=== PATIENT | male | born 1980 | race Caucasian/White ===

== ENCOUNTER 2018-08-09 15:10 | Observation (INO) ==
--- NOTE | 2018-08-09 18:28 | Internal Med History&Physical ---
Date of Encounter: 08/09/18 Time of Encounter: 18:15 Internal Medicine - H&P: HPI Chief complaint: right flank pain Admitted From: Home Plans for Post Hospital Care: Home History of present illness: Mr. Pascual is a 37 year old male who has history of PTSD chronic back pain, knee pain presented to [facility] ED for 3 days of right flank pain. Patient states he has been in his usual healthy until 3 days ago he developed right flank pain, radiated down to the right groin area, 7 out of 10, sharp, constant, associated mild a fever or chills. He denies any blood in the urine. Denies diarrhea or constipation. He has chronic lower back pain. In the emergency room he was found to UTI, CT stone protocol shows 7.5 mm obstructive stone and the right-sided hydronephrosis. WBC 14.4. He received a dose of Rocephin. P atient is going to be admitted for possible pyelonephritis, obstructive stone and hydronephrosis. I called Dr. Lynch he will schedule surgery tomorrow. Internal Medicine - H&P: Meds Allergy/AdvReac Type Severity Reaction Status Date / Time No Known Allergies Allergy Verified 08/09/18 18:22 All Systems PM: A 10-system review of systems was performed and is negative for pertinent findings except as documented above in the HPI. - Constitutional General appearance: Present: A&O X 3, pleasant Exam: CONSTITUTIONAL: Patient appears as an age appropriate male well developed, in no acute distress. EYES Clear sclerae, bilateral pupils are equal, reactive to light and accommodation. Extraocular movements are intact RESPIRATORY: No accessory muscle use, bilateral clear to auscultation, no wheezing, no crackles/rales. CARDIOVASCULAR: Regular heart rate, normal S1 and S2, no murmurs GASTROINTESTINAL: bowel sounds present, soft, tenderness to right groin. No hepatosplenomegaly. No bilateral CVA tenderness MUSCULOSKELETAL: Joints in normal range of motion, no clubbing, no edema, no cyanosis. Bilateral peripheral pulses 2+ LYMPHATIC no lymphadenopathy in neck, groin and axilla bilaterally, no thyromegaly. NEUROLOGIC: CN II to XII are grossly intact, no focal neurological deficit. Deep tendon reflexes 2+ bilaterally. Normal light touch sensation to upper and lower extremity PSYCHIATRIC: Oriented x3, with good insight, mood is euthymic. No hallucinations or delusions. SKIN: Skin warm and dry, no rashes, no open wound. - Assessment and plan (1) Ureteral calculus, right Current Visit: Yes Status: Acute Assessment and plan: IVF, conuslt Dr Lynch NPO after midnight (2) Hydronephrosis Current Visit: Yes Status: Acute Assessment and plan: IVF, possible OR tomorrow, urology Dr lynch is called Qualifiers: Hydronephrosis type: with renal calculous obstruction Qualified Code(s): N13.2 - Hydronephrosis with renal and ureteral calculous obstruction (3) UTI (urinary tract infection) Current Visit: Yes Status: Acute Assessment and plan: pending UC continue ceftriaxone Qualifiers: Urinary tract infection type: acute pyelonephritis Qualified Code(s): N10 - Acute pyelonephritis (4) Back pain Current Visit: Yes Status: Chronic Assessment and plan: conitnue home meds, baclofen Qualifiers: Back pain location: low back pain Chronicity: chronic Back pain laterality: unspecified Sciatica presence: without sciatica Qualified Code(s): M54.5 - Low back pain; G89.29 - Other chronic pain (5) PTSD (post-traumatic stress disorder) Current Visit: Yes Status: Chronic Assessment and plan: continue home meds, sertraline 200 mg daily (6) Tobacco dependence Current Visit: Yes Status: Chronic Assessment and plan: nicotine patch - Time Spent With Patient Total time spent is greater than 50% in coordination of care (as documented) at patient's floor/unit and/or counseling patient: Greater than 35 minutes
[2018-08-09] MEDS ORDERED: Naloxone 0.4 MG/ML INJ IVP PRN (18:52)
[2018-08-09] MEDS ORDERED: Ondansetron 4 MG/2 ML VIAL IVP PRN (18:52)
[2018-08-09] MEDS ORDERED: Acetaminophen 325 MG TABLET PO PRN (18:52)
[2018-08-09] MEDS ORDERED: cefTRIAXone 1,000 MG in Water for inj. (sterile) 20 ML 10 ML IVP SCH (19:00)
[2018-08-09] MEDS: Ringers Solution, Lactated 1,000 ML IVC SCH (19:25)
[2018-08-09] MEDS: traMADol 50 MG TABLET PO PRN (19:26)
[2018-08-09] MEDS: Nicotine 21 MG PATCH.TD24 TD SCH (19:31)
[2018-08-09] MEDS: Baclofen 10 MG TABLET PO PRN (19:42)
[2018-08-09 23:48] LABS: Bilirubin,Urine Small (Negative); Blood,Urine Negative (Negative); Clarity,Urine Cloudy (Clear); Color,Urine Dark Yellow (Yellow); Glucose,Urine (UA) Normal (Normal); Hyaline Casts,Urine None Seen per lpf (None-Few); Ketones,Urine Trace mg/dL (Negative); Leukocyte Esterase,Urine Moderate (Negative); Nitrite,Urine Negative (Negative); Protein,Urine 100 mg/dL (Neg-Trace); RBC,Urine 0-3 per hpf (0-3); Specific Gravity,Urine 1.025 (1.010-1.025); Squamous Epithelial Cell,Urine None Seen per lpf (None-Few); WBC,Urine TNTC per hpf (0-3)
[2018-08-09 23:57] LABS: Bacteria,Urine Many per hpf (None-Few)
[2018-08-10 00:33] LABS: Basophils # 0.1 K/mcL (0.0-0.2); Basophils % 0.7 %; Eosinophils # 0.3 K/mcL (0.0-0.6); Eosinophils % 2.1 %; Hematocrit 37.7 % (37.5-50.1); Hemoglobin 12.6 g/dL (12.9-16.9); Immature Granulocytes % 0.7 % (0-4); Lymphocytes # 1.8 K/mcL (0.6-4.6); Lymphocytes % 13.1 %; Mean Corpuscular HGB Conc 33.4 g/dL (31.6-35.5); Mean Corpuscular Hemoglobin 27.9 pg (28.0-33.3); Mean Corpuscular Volume 83.6 fL (83.0-100.0); Mean Platelet Volume 10.7 fL (9.4-12.4); Monocytes # 1.7 K/mcL (0.0-1.3); Platelet Count 263 K/mcL (140-400); Red Blood Count 4.51 M/mcL (4.19-5.50); Red Cell Distribution Width 14.5 % (11.5-14.5); Segmented Neutrophils % 71.4 %
[2018-08-10 00:50] LABS: Alanine Aminotransferase 13 Units/L (7-52); Albumin 3.3 g/dL (3.5-5.7); Albumin/Globulin Ratio 0.9 (1.1-2.2); Alkaline Phosphatase 67 Units/L (34-104); Aspartate Amino Transferase 10 Units/L (13-39); BUN/Creatinine Ratio 13 (6-26); Bilirubin,Total 0.4 mg/dL (0.3-1.0); Blood Urea Nitrogen 15 mg/dL (6-20); Calcium 8.4 mg/dL (8.6-10.3); Carbon Dioxide 22 mEq/L (23-29); Chloride 105 mEq/L (98-107); Globulin 3.5 g/dL (2.4-3.5); Glucose 90 mg/dL (70-105); Osmolality,Calculated 280 (280-300); Sodium 135 mEq/L (136-145); Total Protein 6.8 g/dL (6.4-8.9); eGFR For Non-African Americans > 60 (> 60)
[2018-08-10] MEDS ORDERED: *HR* HYDROcodone/Acet 5/325 mg TABLET PO ONE (01:08)
[2018-08-10] MEDS: Ringers Solution, Lactated 1,000 ML IVC SCH (05:11)
[2018-08-10] MEDS: traMADol 50 MG TABLET PO PRN (05:12)
[2018-08-10] MEDS: Nicotine 21 MG PATCH.TD24 TD SCH (07:28)
[2018-08-10] MEDS: Baclofen 10 MG TABLET PO PRN (07:29)
[2018-08-10] MEDS ORDERED: Albuterol 2.5 MG/3 ML NEBULIZER IH ONE (09:35)
--- NOTE | 2018-08-10 09:38 | Anesthesia Evaluation PreOp ---
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: Denies Any Significant HX Other Medical History: Other (PTSD) Anesthesia History: No Prior Anesthetic Complications Alcohol Use: occasionally Drug use: none Medications and Allergies Allergy/AdvReac Type Severity Reaction Status Date / Time No Known Allergies Allergy Verified 08/09/18 18:22 - Meds/Allergy Pre-op Review Medications Reviewed: Yes Allergies Reviewed: Yes Beta Blockers on Current Med List: No Anesthesia Results - Labs 08/10/18 00:17 08/10/18 00:17 Anesthesia Exam Vital Signs/O2 Sat/Glucose, Most Current Temp Pulse Resp BP Pulse Ox 08/10/18 08:30 98 08/10/18 07:06 98.2 F 88 15 116/74 98 Height: 6'0 Weight: 178 lbs NPO (# of Hours): MN Pain Scale: 0 - HEENT Pupil (Motor): Pupils equal, EOMI Mallampati: II Oral Opening: Greater than 3 - DUMPER BAILER OPERATOR LOC: Oriented DUMPER BAILER OPERATOR Motor: Normal RUE, Normal LUE, Normal RLE, Normal LLE, Normal Face DUMPER BAILER OPERATOR Sensory: Normal: RUE, LUE, RLE, LLE, Face - Cardiac Rhythm: Regular Murmur: None JVD: No Carotid Bruit: No - Pulmonary Breath Sounds: bilateral Clear Respiratory Effort: Symmetrical Anesthesia Assess/Plan ASA Score: 2 Level of consciousness: Cooperative, Oriented Anesthetic Plan: General Autologous Blood: No Monitoring Plan: Standard Monitors Recovery Plan: PACU (Discussed GA, agres to proceed)
--- NOTE | 2018-08-10 10:05 | Urology - Consult Note ---
Date of Encounter: 08/10/18 Time of Encounter: 10:03 - Assessment and Plan (1) Hydronephrosis Current Visit: Yes Status: Acute Assessment and plan: Hydronephrosis due to obstructing right mid to distal ureteral calculus in setting of UTI fevers more urgent urinary diversion. Plan: Add on for urgent urinary diversion by stent today. Qualifiers: Hydronephrosis type: with ureteral calculous obstruction Qualified Code(s): N13.2 - Hydronephrosis with renal and ureteral calculous obstruction (2) UTI (urinary tract infection) Current Visit: Yes Status: Acute Assessment and plan: Imaging exam and urine consistent with UTI with possible upper tract involvement and right pyelonephritis. Discussed findings and options for management. Urgent urinary diversion is indicated. Plan: Urgent urinary diversion by stenting today. Qualifiers: Urinary tract infection type: acute pyelonephritis Qualified Code(s): N10 - Acute pyelonephritis (3) Ureteral calculus, right Current Visit: Yes Status: Acute Assessment and plan: 7.5 mm right mid to distal ureteral calculus with hydronephrosis, pyelonephritis, active UTI and fevers. Discussed findings and options for management with patient. Plan: Add on for urgent urinary diversion by stent placement in office today. Staged surgical address of stone as outpatient once infection has been eradicated. My office for patient to schedule follow-up appointment. Urology CN:WIL Consult date: 08/10/18 Requesting physician: Memo Vasquez History of present illness: Mr. Pascual is a 37 year old male who has history of PTSD chronic back pain, knee pain presented to [facility] ED for 3 days of right flank pain. Patient states he has been in his usual healthy until 3 days ago he developed right flank pain, radiated down to the right groin area, 7 out of 10, sharp, constant, associated mild a fever or chills. He denies any blood in the urine. Denies diarrhea or constipation. He has chronic lower back pain. In the emergency room he was found to UTI, CT stone protocol shows 7.5 mm obstructive stone and the right-sided hydronephrosis. WBC 14.4. He received a dose of Rocephin. Patient is going to be admitted for possible pyelonephritis, obstructive stone and hydronephrosis. I am called for surgical intervention Past Med Surg Social Fam HX - Past Medical History Psychiatric history: anxiety, depression, PTSD - Social History Smoking Status: Current every day smoker Packs per day: 1 Smokeless Tobacco Status: Yes Alcohol use: occasionally Drug use: none Medications and Allergies Allergy/AdvReac Type Severity Reaction Status Date / Time No Known Allergies Allergy Verified 08/09/18 18:22 Review of Systems - Constitutional fever(s) - EENT Nose, mouth and throat: no dizziness, no headache(s) - Cardiovascular no chest pain, no diaphoresis - Respiratory no cough, no dyspnea - Gastrointestinal abdominal pain - Genitourinary flank pain - Musculoskeletal back pain - Integumentary no erythema, no rash - Neurological no confusion, no sensory deficit - Psychiatric no anxiety, no confusion - Hematologic/Lymphatic no easy bleeding, no easy bruising Exam Initial Vital Signs Temp Pulse Resp BP Pulse Ox 98.0 F 61 15 126/87 95 08/09/18 18:19 08/09/18 18:19 08/09/18 18:19 08/09/18 18:19 08/09/18 18:19 - General physical appearance Present: well developed, well nourished, moderate distress - Eyes Present: PERRL, normal ocular movement - ENT Present: normal nares, normal mucosa - Neck Present: trachea midline - Respiratory Present: normal respiratory effort - Abdomen Abdomen: Present: soft. Absent: distended - Integumentary Present: no rash, no growths - Neurologic Present: normal coordination - Musculoskeletal Present: normal gait Urology Results - Labs 08/10/18 00:17 08/10/18 00:17 Abnormal lab results WBC 14.0 K/mcL (4.3-11.1) H 08/10/18 00:17 Hgb 12.6 g/dL (12.9-16.9) L 08/10/18 00:17 MCH 27.9 pg (28.0-33.3) L 08/10/18 00:17 Neutrophils # 10.0 K/mcL (1.6-8.9) H 08/10/18 00:17 Monocytes # 1.7 K/mcL (0.0-1.3) H 08/10/18 00:17 Sodium 135 mEq/L (136-145) L 08/10/18 00:17 Carbon Dioxide 22 mEq/L (23-29) L 08/10/18 00:17 Calcium 8.4 mg/dL (8.6-10.3) L 08/10/18 00:17 AST 10 Units/L (13-39) L 08/10/18 00:17 Albumin 3.3 g/dL (3.5-5.7) L 08/10/18 00:17 Albumin/Globulin Ratio 0.9 (1.1-2.2) L 08/10/18 00:17 Urine Clarity Cloudy (Clear) A 08/09/18 23:15 Urine Protein 100 mg/dL (Neg-Trace) H 08/09/18 23:15 Urine Ketones Trace mg/dL (Negative) H 08/09/18 23:15 Urine Bilirubin Small (Negative) H 08/09/18 23:15 Urine Urobilinogen 2.0 mg/dL (Normal) H 08/09/18 23:15 Ur Leukocyte Esterase Moderate (Negative) H 08/09/18 23:15 Urine Microscopic WBC TNTC per hpf (0-3) H 08/09/18 23:15 Urine Bacteria Many per hpf (None-Few) H 08/09/18 23:15 Diabetes panel 08/10/18 Range/Units 00:17 Sodium 135 L (136-145) mEq/L Potassium 4.0 (3.5-5.1) mEq/L Chloride 105 (98-107) mEq/L Carbon Dioxide 22 L (23-29) mEq/L BUN 15 (6-20) mg/dL Creatinine 1.15 (0.70-1.30) mg/dL Glucose 90 (70-105) mg/dL Calcium 8.4 L (8.6-10.3) mg/dL AST 10 L (13-39) Units/L ALT 13 (7-52) Units/L Alkaline Phosphatase 67 (34-104) Units/L Albumin 3.3 L (3.5-5.7) g/dL Calcium panel 08/10/18 Range/Units 00:17 Calcium 8.4 L (8.6-10.3) mg/dL Albumin 3.3 L (3.5-5.7) g/dL Pituitary panel 08/10/18 Range/Units 00:17 Sodium 135 L (136-145) mEq/L Potassium 4.0 (3.5-5.1) mEq/L Chloride 105 (98-107) mEq/L Carbon Dioxide 22 L (23-29) mEq/L BUN 15 (6-20) mg/dL Creatinine 1.15 (0.70-1.30) mg/dL Glucose 90 (70-105) mg/dL Calcium 8.4 L (8.6-10.3) mg/dL Adrenal panel 08/10/18 Range/Units 00:17 Sodium 135 L (136-145) mEq/L Potassium 4.0 (3.5-5.1) mEq/L Chloride 105 (98-107) mEq/L Carbon Dioxide 22 L (23-29) mEq/L BUN 15 (6-20) mg/dL Creatinine 1.15 (0.70-1.30) mg/dL Glucose 90 (70-105) mg/dL Calcium 8.4 L (8.6-10.3) mg/dL Total Bilirubin 0.4 (0.3-1.0) mg/dL AST 10 L (13-39) Units/L ALT 13 (7-52) Units/L Alkaline Phosphatase 67 (34-104) Units/L Albumin 3.3 L (3.5-5.7) g/dL All other labs normal. - Imaging CT scan - abdomen: image reviewed CT scan - pelvis: image reviewed (Images of CT abdomen and pelvis reviewed and interpreted independently) Consult Discharge Plan - Plan Referrals: NONE,PCP [Primary Care Provider] -
[2018-08-10] MEDS ORDERED: Famotidine 20 MG/2 ML VIAL ONE (10:17)
[2018-08-10] MEDS ORDERED: Acetaminophen IV 1,000 MG/100 ML INFUS..BTL ONE (10:17)
[2018-08-10] MEDS ORDERED: Isovue-300 50 ML VIAL ONE (10:31)
[2018-08-10] MEDS ORDERED: Gentamicin 80 MG/2 ML VIAL ONE (10:49)
[2018-08-10] MEDS ORDERED: *HR* FentaNYL (PF) 100 MCG/2 ML VIAL ONE ×2 (11:01→11:20)
[2018-08-10] MEDS ORDERED: *HR* OxyCODONE Immed Rel 5 MG TABLET PO PRN (11:08)
[2018-08-10] MEDS ORDERED: *HR* Morphine 2 MG/ML SYRINGE IVP PRN (11:08)
--- NOTE | 2018-08-10 11:12 | Operative Note ---
Date of procedure: 08/10/18 Pre-op diagnosis: Right ureteral calculus, UTI Post-op diagnosis: same Procedure: Cystoscopy, right retrograde ureteral pyelography with intraoperative interpretation of radiographic images in real time by surgeon to facilitate procedure, right double-J stent placement Implants: 6 x 28 right double-J stent Complications: None Anesthesia: GETA Surgeon: Konrad Soto Was there an assistant boiler operator present: No Estimated blood loss (cc): 0 Specimen: none Condition: stable Disposition: PACU Procedure in Detail: The patient brought to the operating theater placed on the table in supine position. Patient identified by name and administered a general anesthetic. The patient placed in dorsal lithotomy prepped and draped in the normal sterile fashion. A cystoscope was inserted urethral meatus and advanced toward the bladder under direct visualization. There were no mucosal abnormalities of urethra or bladder. An open-ended catheter was placed the tip of the right ureteral orifice and with gentle injection of contrast a right retrograde ureteropyelogram was performed. Intraoperative interpretation of radiographic images in real time by surgeon to facilitate procedure revealed normal distal ureter to approximately level of the iliacs were a large filling defect was noted. Above this filling defect significant hydroureteronephrosis was identified consistent with high-grade ureteral obstruction. No other abnormalities were appreciated. Based upon these findings urinary diversion was indicated. Under fluoroscopic guidance a Glidewire was advanced the right ureteral orifice and above the stone into the right renal pelvis. Over the Glidewire a 6 x 28 double-J stent was advanced. Once the stent was felt in good position the Glidewire was removed. Proximal and distal curls of the stent were seen in satisfactory position. All instruments were removed from the patient's bladder. This ended the operative procedure
[2018-08-10] MEDS ORDERED: Lidocaine -MPF 2% 2 ML VIAL ONE (11:20)
[2018-08-10] MEDS ORDERED: Dexamethasone 4 MG/ML VIAL ONE (11:20)
[2018-08-10] MEDS ORDERED: Ondansetron 4 MG/2 ML VIAL ONE (11:20)
[2018-08-10] MEDS ORDERED: *HR* Propofol 200 MG/20 ML VIAL IVP ONE (11:20)
[2018-08-10] MEDS ORDERED: *HR* Midazolam HCl 2 MG/2 ML VIAL ONE (11:20)
--- NOTE | 2018-08-10 11:42 | Anesthesia Evaluation Post Op ---
Date of Encounter: 08/10/18 Time of Encounter: 11:40 - Vital Signs Vital Signs: Vital Signs/O2 Sat/Glucose, Most Current Temp Pulse Resp BP Pulse Ox 08/10/18 11:35 110 15 110/74 96 08/10/18 11:25 95 16 105/72 95 08/10/18 11:15 99.9 F H 100 22 93/60 95 08/10/18 10:23 16 95 08/10/18 08:30 98 - Lungs Lungs: Clear Ascult./Percussion - Airway Airway: Non-obstructed - Cardiovascular Regular Rate - Mental Status Mental Status: Alert & Oriented, Answers Appropriately - Pain Pain Scale: 0 - Nausea Vomiting Nausea Vomiting: Not Present - Hydration Hydration: Ice chips - Discharge PostOp Status: Transfer Patient to floor
[2018-08-10] MEDS ORDERED: traMADol 50 MG TABLET PO PRN (11:58)
[2018-08-10] MEDS ORDERED: Naloxone 0.4 MG/ML INJ IVP PRN (11:58)
[2018-08-10] MEDS ORDERED: Baclofen 10 MG TABLET PO PRN (11:58)
[2018-08-10] MEDS ORDERED: Acetaminophen 325 MG TABLET PO PRN (11:58)
[2018-08-10] MEDS ORDERED: Ondansetron 4 MG/2 ML VIAL IVP PRN (11:58)
[2018-08-10] MEDS ORDERED: Ringers Solution, Lactated 1,000 ML IVC SCH (11:58)
--- NOTE | 2018-08-10 14:27 | Discharge Summary ---
<Fabián Stratton - Last Filed: 08/10/18 15:26> Date of Encounter: 08/10/18 - Discharge Diagnosis (1) Ureteral calculus, right Status: Acute (2) Hydronephrosis Priority: Secondary Status: Acute Qualifiers: Hydronephrosis type: with ureteral calculous obstruction Qualified Code(s): N13.2 - Hydronephrosis with renal and ureteral calculous obstruction (3) UTI (urinary tract infection) Priority: Secondary Status: Acute Qualifiers: Urinary tract infection type: acute pyelonephritis Qualified Code(s): N10 - Acute pyelonephritis (4) Back pain Status: Chronic Qualifiers: Back pain location: low back pain Chronicity: chronic Back pain laterality: unspecified Sciatica presence: without sciatica Qualified Code(s): M54.5 - Low back pain; G89.29 - Other chronic pain (5) PTSD (post-traumatic stress disorder) Status: Chronic (6) Tobacco dependence Status: Chronic Hospital course: Mr. Pascual is a 37 year old male - Time Spent with Patient Total time spent providing and/or coordinating discharge services: - Discharge Medications Prescriptions: Sulfamethoxazole/Trimeth DS [Bactrim DS] 1 each PO BID 5 Days #10 tablet Tamsulosin [Flomax] 0.4 mg PO DAILY 14 Days #14 capsule Home Medications: Acetaminophen [Tylenol] 650 mg PO QID PRN 08/10/18 [History] Baclofen 5 mg PO QID 08/10/18 [History] Cholecalciferol (D-3) [Vitamin D] 2,000 units PO DAILY 08/10/18 [History] Gabapentin [Neurontin] 600 mg PO QID 08/10/18 [History] HydrOXYzine Pamoate [Vistaril] 50 mg PO QID 08/10/18 [History] Ibuprofen [Ibu] 800 mg PO QID PRN 08/10/18 [History] Sertraline [Zoloft] 200 mg PO DAILY 08/10/18 [History] Sulfamethoxazole/Trimeth DS [Bactrim DS] 1 each PO BID 5 Days #10 tablet 08/10/18 [Rx] Tamsulosin [Flomax] 0.4 mg PO DAILY 14 Days #14 capsule 08/10/18 [Rx] traZODone [TraZODone] 150 mg PO HS 08/10/18 [History] Allergies/Adverse Reactions: Allergy/AdvReac Type Severity Reaction Status Date / Time No Known Allergies Allergy Verified 08/09/18 18:22 Date of admission: 08/09/18 17:54 Primary care physician: PCP NONE Consults: 08/09/18 18:54 Consult to Physician [CONS] Routine Consulting Provider: Konrad Soto Reason for Consult: obstructing stone Time Notified: 18:56 Call Completed: Yes - Constitutional Vitals: Temp Pulse Resp BP Pulse Ox 97.2 F L 70 10 100/62 98 08/10/18 14:45 08/10/18 14:45 08/10/18 14:45 08/10/18 14:45 08/10/18 14:45 - Patient Status Disposition: Home, Self-Care Condition: Fair - Discharge Instructions Follow Up With: Konrad Soto [Partnered Physician] - (Office will call patient at home with date and time of appointment. Thank you) - Attending Attestation I examined this patient and my medical decision-making was reviewed with the Resident Physician on 08/10/18. I agree with the documented findings, disposition and treatment plan as described except to the extent set forth below. Mr Pascual has been in observation due to renal obstruction from stone. He is now s/p stent placement and is feeling OK. He is afebrile and ready for discharge home Exam alert Comfortable Mucus membranes dry Heart reg and not tachy No wheeze abd soft and nontender No edema Plan D/C home today. <Rusty Madera - Last Filed: 08/10/18 16:47> - NOTES TO OUTPATIENT PROVIDER Notes to Outpatient Provider: Mr. Pascual was admitted on 08/09/18 for right ureteral calculus with hydronephrosis as demonstrated on CT. He underwent right double-J stent placement with Dr. Soto on 08/10. Pain had improved at time of discharged. Prescriptions were sent for a 5 day course of Bactrim and a short supply of Flomax per urology. Recommend he follow up with his PCP 3-[address] Soto' office will call him for follow up for outpatient staged stone removal. Date of Encounter: 08/10/18 Time of Encounter: 14:27 - Discharge Diagnosis (1) Ureteral calculus, right Priority: Primary Status: Acute (2) Hydronephrosis Priority: Secondary Status: Acute Qualifiers: Hydronephrosis type: with ureteral calculous obstruction Qualified Code(s): N13.2 - Hydronephrosis with renal and ureteral calculous obstruction (3) UTI (urinary tract infection) Priority: Secondary Status: Acute Qualifiers: Urinary tract infection type: acute pyelonephritis Qualified Code(s): N10 - Acute pyelonephritis (4) Back pain Priority: Secondary Status: Chronic Qualifiers: Back pain location: low back pain Chronicity: chronic Back pain laterality: unspecified Sciatica presence: without sciatica Qualified Code(s): M54.5 - Low back pain; G89.29 - Other chronic pain (5) PTSD (post-traumatic stress disorder) Priority: Secondary Status: Chronic (6) Tobacco dependence Priority: Secondary Status: Chronic Hospital course: Mr. Pascual is a 37 year old male with PMH of PTSD, chronic back pain, chronic knee pain, and tobacco abuse. He originally presented to [facility] ED complaining of right flank pain of [address] abdomen/pelvis revealed a 7.5mm ob structive right ureteral stone and hydronephrosis. UA demonstrated moderate leukocyte esterase and proteinuria. He was subsequently transferred to [facility] for further urology management. Upon arrival to [facility] pt was found to be febrile with temp of 100.2, and HR of 93. Labs significant for WBC 14.0. Pain was controlled and pt was given IV fluid hydration. Underwent cystoscopy with right retrograde ureteral pyelography with right double-J stent placement with Dr Soto on the morning of 08/10. Post surgical course was unremarkable at time of discharge. He was given prescriptions for a 5 day course of Bactrim as well as a short course of Flomax per urology. Recommend follow up with PCP in 3-5 days. Pt also to follow up with urology as outpatient for staged stone removal after resolution of UTI. Discharge discussed with: patient, nurse, oim consultant - Time Spent with Patient Total time spent providing and/or coordinating discharge services: Date of admission: 08/09/18 17:54 Primary care physician: PCP NONE Consults: 08/09/18 18:54 Consult to Physician [CONS] Routine Consulting Provider: Konrad Soto Reason for Consult: obstructing stone Time Notified: 18:56 Call Completed: Yes Discharging clinician: Rusty Madera - Constitutional Vitals: Temp Pulse Resp BP Pulse Ox 98.1 F 77 15 104/68 97 08/10/18 13:50 08/10/18 13:50 08/10/18 13:50 08/10/18 13:50 08/10/18 13:50 General appearance: Present: A&O X 3, pleasant Exam: Constitutional: well developed, well nourished male in no acute distress Head: Normocephalic, atraumatic, patches of hair. Eyes: PERRL, EOMI, conjunctiva pink, sclera anicteric Neck: Supple, trachea midline, no lymphadenopathy Lungs: Clear to auscultation bilaterally. Nonlabored breathing. No wheezes, rales, or rhonchi noted. Cardiac: RRR. +s1 +S2 No murmurs, clicks, or rubs noted. GI: Abdomen soft, nontender, nondistended. Normoactive bowel sounds Extremities: Warm, radial pulses palpable and symmetrical. No cyanosis, pedal edema, or calf tenderness. Neuro: Alert and oriented 3. No focal deficits. Normal speech. Skin: Warm, dry, and intact. - Patient Status Functional capacity at discharge: independent ambulation Overall status at discharge: patient is progressing back to baseline - Diet and Activity Activity: increase activity as tolerated, resume usual activities as tolerated Diet: advance to your usual diet
[2018-08-10 14:58] VITALS: BP 100/62
[2018-08-10] MEDS ORDERED: cefTRIAXone 1,000 MG in Water for inj. (sterile) 20 ML 10 ML IVP SCH (19:00)
[2018-08-11] MEDS ORDERED: Nicotine 21 MG PATCH.TD24 TD SCH (09:00)
== END 2018-08-10 16:48 | disposition home or self-care (01) ==
LOC: 3ANU → SUATTDRO 17:54
PROVIDERS: ADMIT Hospitalist; ATTEND Internal Medicine